=== PATIENT | female | born 1975 | race Two or more races ===

== ENCOUNTER 2018-12-26 09:37 | Outpatient (CLI) | payer OTHER | END 2018-12-26 09:43 | disposition home or self-care (01) | LOC: SONOGRAMA 09:37 | DX: D25.1 Intramural leiomyoma of uterus (principal); N93.8 Other specified abnormal uterine and vaginal bleeding ==

== ENCOUNTER 2020-06-05 10:15 | Inpatient (IN) | payer OTHER ==
[~2020-06-05] VITALS: Ht 165.1 cm; Wt 104.3 kg
[2020-06-05] MEDS ORDERED: IRON (12:50)
[2020-06-12] MEDS ORDERED: IRON236 MG (16:19)
[2020-06-12] MEDS ORDERED: SPRINTEC 28 DA1 EACH (16:19)
[2020-06-12] MEDS ORDERED: INFED50 MG/ML (16:32)
[2020-06-14] MEDS ORDERED: OXYC1TAB9 PO (07:54)
[2020-06-14] MEDS ORDERED: FERRETTS325 MG PO (07:56)
== END 2020-06-14 10:55 | disposition home or self-care (01) | DRG 743 ==
LOC: SURH 06-12 07:00 → O/R 06-12 09:12 → OB/GYN 06-12 09:12 → SURH 06-12 10:15 → OB/GYN 06-12 18:55
PROVIDERS: ADMIT Specialist; ATTEND Specialist
PROC: 0UB70ZZ Excision of Bilateral Fallopian Tubes, Open Approach (ICD-10-PCS; 2020-06-12)
PROC: 0US Female Reproductive System, Reposition (ICD-10-PCS; 2020-06-12)
PROC: 0US20ZZ Reposition Bilateral Ovaries, Open Approach (ICD-10-PCS; 2020-06-12)
PROC: 0UT90ZL Resection of Uterus, Supracervical, Open Approach (ICD-10-PCS; principal; 2020-06-12 07:00)
DX: D25.1 Intramural leiomyoma of uterus (principal); D25.2 Subserosal leiomyoma of uterus; N80.0 Endometriosis of uterus; N73.6 Female pelvic peritoneal adhesions (postinfective); N83.8 Other noninflammatory disorders of ovary, fallopian tube and broad ligament; N92.0 Excessive and frequent menstruation with regular cycle; D50.9 Iron deficiency anemia, unspecified; Z20.822 Contact with and (suspected) exposure to COVID-19

== ENCOUNTER 2021-01-02 08:56 | Emergency (ER) | payer OTHER ==
[~2021-01-02] VITALS: Ht 165.1 cm; Wt 99.8 kg
[~2021-01-02 08:56] MED LIST: FERRETTS325 MG PO; INFED50 MG/ML; IRON; IRON236 MG; OXYC1TAB9 PO; SPRINTEC 28 DA1 EACH
[2021-01-02] MEDS ORDERED: FLAGYL500MG PO (16:01)
[2021-01-02] MEDS ORDERED: TRAMADOL HCL50 MG PO (16:01)
== END 2021-01-02 17:05 | disposition home or self-care (01) ==
LOC: ER 08:56
DX: R30.0 Dysuria (principal)